=== PATIENT | female | born 1975 | race Caucasian/White ===

== ENCOUNTER 2017-04-18 12:12 | Outpatient (CLI) | payer MEDICAID ==
[~2017-04-18] VITALS: Ht 160 cm; Wt 70.1 kg
[2017-04-18] MEDS ORDERED: PRENAT PO (12:33)
[2017-04-18] MEDS ORDERED: FER325 PO (12:33)
[2017-04-18 12:34] VITALS: BP 127/73; PULSE 74; RESP 18; Ht 160 cm; Wt 70.1 kg
[2017-04-18] MEDS ORDERED: LACTATED RINGER'S 1,000 ML IV ONE ×2 (13:00→15:00)
--- NOTE | 2017-04-18 13:01 | RADRPT ---
PROCEDURE: OB ultrasound for biophysical profile CLINICAL INDICATION: Contractions TECHNIQUE: Multiple sonographic images of the pelvis were obtained. Transabdominal views of the g ravid uterus are available for review. The images were reviewed on a PACS workstation. COMPARISON: None FINDINGS: breathing movement = 2/2 tone = 2/2 motion = 2/2 MICHELE = 2/2 MICHELE = 23.1 cm Single live intrauterine with cardiac activity of 144 bpm. position is cephal ic. The placenta is posterior. IMPRESSION: 1. Single live intrauterine gestation. 2. Biophysical profile = 8. 3. MICHELE = 23.1 cm. RPTAT: HH .Amina Tam MD, MD Date Time Electronically viewed and signed by .Amina Tam MD, on 04/18/2017 13:01 .G/
[2017-04-18 13:27] LABS: ADD UMIC YES; UR ASCORBIC ACID NEGATIVE (NEGATIVE); UR BACTERIA MODERATE /HPF (NONE SEEN); UR BILIRUBIN (Dip) NEGATIVE (NEGATIVE); UR BLOOD (Dip) 1+ mg/dL (NEGATIVE); UR CLARITY CLEAR (CLEAR); UR COLOR STRAW (YELLOW); UR GLUCOSE (Dip) NEGATIVE (NEGATIVE); UR KETONES (Dip) NEGATIVE (NEGATIVE); UR LEUKOCYTE ESTERASE (Dip) NEGATIVE Leu/ul (NEGATIVE); UR NITRITE (Dip) NEGATIVE (NEGATIVE); UR RBC 1 /HPF (0-5); UR SPECIFIC GRAVITY (Dip) 1.002 (1.003-1.030); UR SQUAMOUS EPITHELIAL CELL FEW /HPF (FEW); UR TOTAL PROTEIN (Dip) NEGATIVE (NEGATIVE); UR UROBILINOGEN (Dip) NEGATIVE (NEGATIVE)
[2017-04-18] MEDS ORDERED: TERBUTALINE 1 MG/ML INJ SC ONE (15:00)
[2017-04-18] MEDS ORDERED: ACETAMINOPHEN 500 MG TAB PO STA (15:53)
--- NOTE | 2017-04-18 20:20 | PN ---
Triage Information Date/Time April 18, 2017 Reason for visit: Uterine contractions Weeks of Gestation 38 weeks and 3 days /Para Diabetes: none Hypertention: none Additional information 41-year-old with IUP at 38 weeks and 3 days with care with OB/ [facility] and history of 1 scheduled for repeat at 39 weeks. She presented with complaint of uterine cramps and contractions. Denies any leaking of fluid, vaginal bleeding or decreased movement. Patient symptoms improved and resolved with hydration. She also received a dose of Tylenol and her pain and contraction significantly improved. Was noted in the ultrasound to have MICHELE 23. BPP: 04/10 and NSC category 1 Objective Vital Signs Date Time Temp Pulse Resp B/P Pulse Ox O2 Delivery O2 Flow Rate FiO2 04/18/17 12:34 98.1 74 18 127/73 97 Room Air Heart Rate: 130's Contractions: 6-10 Minutes Apart Exam General appearance: Patient is alert and oriented 4 and appears to be in mild distress. Abdomen: Soft, gravid, nontender, no rebound tenderness, no guarding no rigidity Fundal height consistent with gestational age NST: Category 1 Irregular contractions between 5-10 minutes noted on the monitor that decreasing frequency and intensity after hydration. Patient rated her pain 3 out of 10 that resolved with p.o. Tylenol Results/Medications Results 24 hrs Laboratory Tests Test 04/18/17 11:00 Urine Color STRAW Urine Clarity CLEAR Urine pH 8.0 Urine Specific [place] 1.002 L Urine Ketones NEGATIVE Urine Nitrite NEGATIVE Urine Bilirubin NEGATIVE Urine Urobilinogen NEGATIVE Urine Leukocyte Esterase NEGATIVE Urine Microscopic RBC 1 Urine Microscopic WBC 3 Urine Squamous Epithelial Cells FEW Urine Bacteria MODERATE Urine Hemoglobin 1+ H Urine Glucose NEGATIVE Urine Total Protein NEGATIVE Imaging Results PROCEDURE: OB ultrasound for biophysical profile CLINICAL INDICATION: Contractions TECHNIQUE: Multiple sonographic images of the pelvis were obtained. Transabdominal views of the gravid uterus are available for review. The images were reviewed on a PACS workstation. COMPARISON: None FINDINGS: breathing movement = 2/2 tone = 2/2 motion = 2/2 MICHELE = 2/2 MICHELE = 23.1 cm Single live intrauterine with cardiac activity of 144 bpm. position is cephalic. The placenta is posterior. IMPRESSION: 1. Single live intrauterine gestation. 2. Biophysical profile = 04/10. 3. MICHELE = 23.1 cm. RPTAT: HH Disposition: Discharge Assessment/Plan IUP at 38 weeks and 3 days History of 1 irregular contractions resolved with p.o. hydration. Patient was comfortable. Plan to DC home Follow-up as a scheduled for repeat at 39 weeks Strict labor precaution and kick count discussed and follow-up within 24- 48 hours with her OB clinic recommended Patient verbalized understanding all above discussion. JAMES HURST MD Apr 18, 2017 20:19
--- NOTE | 2017-04-19 09:50 | TRIAGE ---
OB Triage Datetime Report Generated by CPN: 04/18/2017 16:29 Datetime: 04/18/2017 16:23 Stage of : OB Triage Maternal Assessment Level of Consciousness: Fully Conscious Labor Evaluation Frequency: NONE Monitor Mode: External Resting Tone Atlas: Relaxed Heart Rate FHR Baseline Rate: 140 Monitor Mode: External US Variability: Moderate 6-25 bpm Accelerations: 15X15 Decelerations: None Pain Assessment Pain Scale: 2 Pain Goal: 3 Vaginal Exam Membrane Status: Intact Vaginal Bleeding: None Datetime: 04/18/2017 15:30 Stage of : OB Triage Maternal Assessment Level of Consciousness: Fully Conscious Labor Evaluation Frequency: 4UC/HR Monitor Mode: External Duration (sec)2399: 50-130 Quality: Mild Resting Tone Atlas: Relaxed Heart Rate FHR Baseline Rate: 140 Monitor Mode: External US Variability: Moderate 6-25 bpm Accelerations: 15X15 Decelerations: None Pain Assessment Pain Scale: 0 Pain Goal: 3 Vaginal Exam Membrane Status: Intact Vaginal Bleeding: None Datetime: 04/18/2017 14:30 Stage of : OB Triage Maternal Assessment Level of Consciousness: Fully Conscious Labor Evaluation Frequency: 3UC/HR Monitor Mode: External Duration (sec)2399: 100-140 Quality: Mild Resting Tone Atlas: Relaxed Heart Rate FHR Baseline Rate: 130 Monitor Mode: External US Variability: Moderate 6-25 bpm Accelerations: 15X15 Decelerations: None Pain Assessment Pain Scale: 0 Pain Goal: 3 Vaginal Exam Membrane Status: Intact Vaginal Bleeding: None Datetime: 04/18/2017 13:30 Stage of : OB Triage Maternal Assessment Level of Consciousness: Fully Conscious Labor Evaluation Frequency: 5UC/HR Monitor Mode: External Duration (sec)2399: 60-180 Quality: Mild Resting Tone Atlas: Relaxed Heart Rate FHR Baseline Rate: 130 Monitor Mode: External US Variability: Moderate 6-25 bpm Accelerations: 15X15 Decelerations: None Category: Category I Pain Assessment Pain Scale: 0 Pain Goal: 3 Vaginal Exam Membrane Status: Intact Vaginal Bleeding: None Datetime: 04/18/2017 12:31 Assessment Type: Triage Maternal Assessment Level of Consciousness: Fully Conscious DTR's/Clonus: DTRs 2+; No Clonus Headache: Denies Blurred Vision: No Respiratory Effort: Unlabored; Regular Rhythm; Equal Expansion Breath Sounds, Left: Clear and Equal Breath Sounds, Right: Clear and Equal Nausea/Vomiting: Denies RUQ Epigastric Pain: Denies Lower Extremities Edema: None Degree: None Upper Extremities Edema: None Degree: None Facial Edema: None Fall Risk Assessment History of Falling: (0) No Secondary Diagnosis: (0) No Ambulatory Aid: (0) Bedrest/Nurse Assist IV Therapy: (0) No Gait: (0) Normal/Bedrest/Immobile Mental Status: (0) Oriented to Own Ability Fall Score: 0 Fall Risk Score Definition: No Risk: No action required Datetime: 04/18/2017 12:30 Time of Arrival: 04/18/2017 12:07 EGA: 38.3 Arrived By: Ambulatory Arrived From: Office Chief Complaint: PT SENT FROM CLINIC TO R/O LABOR Movement: Present Contractions: Denies/Absent Rupture of Membranes: Denies Vaginal Bleeding: None Vaginal Discharge: Denies Recent Sexual Intercouse: Denies Abdominal Trauma: Not Applicable Patient Complaints: None Time Provider Notified: 04/18/2017 12:41 Provider Notified: ABELARDO Initial Plan: BPP/IV HYDRATION/UA/EFM/TERB Datetime: 04/18/2017 12:21 Monitor Mode: External Monitor Mode: External US
== END 2017-04-18 16:40 | disposition home or self-care (01) ==
LOC: OBT 12:12 → L-D 12:13 → OBT 16:40
PROVIDERS: ATTEND Obstetrics & Gynecology
DX: O62.9 Abnormality of forces of labor, unspecified (principal); Z3A.38 38 weeks gestation of pregnancy
CPT/HCPCS: 36415; 76818; 81001; 96360; 96361; 96372; J3105; J7120; Z7500; Z7610; G0463

== ENCOUNTER 2017-04-23 10:04 | Inpatient (IN) | payer MEDICAID ==
[~2017-04-23] VITALS: Ht 160 cm; Wt 70.1 kg
[~2017-04-23 10:04] MED LIST: FER325 PO; PRENAT PO
[2017-04-23 10:23] VITALS: Ht 160 cm; Wt 70.1 kg
[2017-04-23] MEDS ORDERED: OXYTOCIN 30 UNITS/LR 500 ML IV SCH (10:30)
[2017-04-23] MEDS ORDERED: OXYTOCIN 30 UNITS/LR 500 ML IV PRN ×2 (10:30→18:00)
[2017-04-23] MEDS ORDERED: METHYLERGONOVINE 0.2 MG INJ IM PRN ×2 (10:30→18:00)
[2017-04-23] MEDS ORDERED: MISOPROSTOL 200 MCG TAB PR PRN ×2 (10:30→18:00)
[2017-04-23] MEDS ORDERED: CARBOPROST 250 MCG INJ IM PRN ×2 (10:30→18:00)
[2017-04-23] MEDS ORDERED: CEFAZOLIN 2 GM/50 ML (PMX) 50 ML IV SCH (10:30)
[2017-04-23 11:01] LABS: BASOPHILS % 0.4 % (0.0-2.0); EOSINOPHILS # 0.1 10^3/ul (0.0-0.5); EOSINOPHILS % 0.8 % (0.0-7.0); HEMATOCRIT 39.9 % (37.0-47.0); HEMOGLOBIN 13.5 g/dl (12.0-16.0); LYMPHOCYTES # 1.8 10^3/ul (0.8-2.9); MEAN CORPUSCULAR HEMOGLOBIN 31.2 pg (29.0-33.0); MEAN CORPUSCULAR HGB CONC 33.8 g/dl (32.0-37.0); MEAN CORPUSCULAR VOLUME 92.1 fl (82.0-101.0); MEAN PLATELET VOLUME 11.7 fl (7.4-10.4); MONOCYTE # 0.5 10^3/ul (0.3-0.9); MONOCYTES % 6.6 % (0.0-11.0); NEUTROPHILS % 68.7 % (39.0-77.0); PLATELET COUNT 347 10^3/UL (140-415); RED BLOOD COUNT 4.33 10^6/ul (4.20-5.40); RED CELL DISTRIBUTION WIDTH 14.2 % (11.5-14.5); WHITE BLOOD COUNT 7.8 10^3/ul (4.8-10.8)
[2017-04-23] MEDS: LACTATED RINGER'S 1,000 ML IV SCH (11:12)
[2017-04-23 11:24] LABS: INR 0.88; PARTIAL THROMBOPLASTIN TIME 29.6 Sec (25.0-35.0); PROTIME 11.9 Sec (12.2-14.2); PT RATIO 0.9
[2017-04-23] MEDS ORDERED: ONDANSETRON 4 MG INJ IV STA (12:18)
[2017-04-23] MEDS ORDERED: CITRIC ACID/NA CITRATE 30 ML CUP ONE (12:20)
[2017-04-23] MEDS ORDERED: CITRIC ACID/NA CITRATE 30 ML CUP PO ONE (12:20)
[2017-04-23] MEDS ORDERED: ONDANSETRON 4 MG INJ ONE (12:21)
[2017-04-23] MEDS ORDERED: morphine SULFATE/PF (10 MG/10 ML) INJ ONE (12:55)
[2017-04-23] MEDS ORDERED: METOCLOPRAMIDE 10 MG INJ ONE (12:55)
[2017-04-23] MEDS ORDERED: OXYTOCIN 10 UNIT INJ ONE (12:55)
[2017-04-23] MEDS ORDERED: FENTAnyl 50 MCG/ML VIAL ONE (12:55)
[2017-04-23] MEDS ORDERED: PHENYLephrine (100 MCG/ML) 5ML SYG ONE (12:55)
--- NOTE | 2017-04-23 13:10 | HP ---
Date/Time of Note Date/Time of Note DATE: 04/23/17 TIME: 12:56 OB - History Hx of Present Free Text/Dictation 41 years old female [id number] EDC April 29, 2007 admitted to the hospital at 39 weeks gestation with a history of previous section requested voluntary sterilization bilateral tubal ligation at the time of her section , this patient has been under the care of the [facility] and her was not complicated with gestational diabetes - induced hypertension or any other surgical or medical condition . [employer] history [place] at age 13 history of 3 pregnancies including present one previous cell one a spontaneous AB no other surgery or hospitalization noted in patient's record s allergies Denies allergy to any known medication Social habit Denies smoking drinking or using illicit drug Review of system within normal physical examination 5 feet 3 155 pound total weight gain during the 7 pound Temperature 98 pulse 82 respiration 18 blood pressure 114/77 Head ears nose and throat negative Neck supple no thyromegaly Lungs clear to P&A Heart normal sinus rhythm no murmur Abdomen fundal height 37 cm from symphysis pubis heart rate category 1 Pelvic examination deferred Extremities no edema no varicosities Impression intrauterine at 39 weeks gestation, history of previous section, requesting bilateral tubal ligation at the time of section, she has been counseled regarding the failure rate of tubal ligation increased risk of ectopic future failure to conceive ,also implication of the surgery including but not to bowel and bladder injury, wound infection wound hematoma and she is willing to go ahead with the procedure Chief Complaint: 39 weeks history of previous request for bilateral tuba Estimated Due Date: Apr 29, 2017 : 3 Para: 1 Spontaneous : 1 Ultrasounds: Normal mid trimester US Obstetrical Complications: None Medical Complications: None Past Family/Social History * Past Medical, Surgical, Family and Obstetric Histories reviewed from chart. Rubella: immune RPR/VDRL: Negative GBS Status: Negative HBsAG: Negative OB Admission Exam Physical Exam HEENT: WNL Heart: Rhythm Normal Lungs: Clear, Equal Abdomen: WNL Extremities: Normal Reflexes: Normal Cervical Dilatation: None Heart Rate: 130's Accelerations: Accelerations Present Decelerations: No Decelerations Varibility: Moderate Intensity: Mild Last 72 hours Lab Results CBC & BMP 04/23/17 10:30 OB Assessment/Plan Reason for admission: other (41 years old female 3 para 1 EDC April 29, 2017 history of previous admitted at 39 weeks gestation to undergo repeat patient has requested bilateral tubal ligation at the time of her section and she has been counseled regarding the failure rate of tubal ligation increased risk of ectopic future failure to conceive also the complication of the surgery including but not limited to bowel and bladder injury infection wound hematoma wound and for as well as complication may arise from the anesthesia she would like to proceed with the operation) IONA ZHOU MD Apr 23, 2017 13:06
[2017-04-23] MEDS ORDERED: DEXAMETHASONE 4 MG/ML 1 ML INJ ONE (13:25)
[2017-04-23] MEDS ORDERED: HYDROmorphONE (0.2 MG/ML) 10ML SYG IV PRN ×3 (14:00)
[2017-04-23] MEDS ORDERED: DIPHENHYDRAMINE 50 MG INJ IV PRN ×2 (14:00)
[2017-04-23] MEDS ORDERED: OXYCODONE/ACETAMINOPHEN (5/325) TAB PO PRN ×2 (14:00)
[2017-04-23] MEDS ORDERED: IPRATROPIUM (NEB) 0.5 MG/2.5 ML AMP HHN PRN (14:00)
[2017-04-23] MEDS ORDERED: ONDANSETRON 4 MG INJ IV PRN ×2 (14:00)
[2017-04-23] MEDS ORDERED: hydrALAzine 20 MG INJ IV PRN (14:00)
[2017-04-23] MEDS ORDERED: FENTAnyl 50 MCG/ML VIAL IV PRN ×3 (14:00)
[2017-04-23] MEDS ORDERED: EPHEDrine SULFATE 50 MG/5 ML SYG IV PRN (14:00)
[2017-04-23] MEDS ORDERED: morphine 4 MG/ML VIAL IV PRN (14:00)
[2017-04-23] MEDS ORDERED: NALOXONE (0.4 MG/ML) INJ IV PRN (14:00)
[2017-04-23] MEDS ORDERED: MEPERIDINE 25 MG INJ IV PRN (14:00)
[2017-04-23] MEDS ORDERED: TRIMETHOBENZAMIDE 100 MG/ML VIAL IM PRN ×2 (14:00)
[2017-04-23] MEDS ORDERED: LABETALOL HCL 20MG INJ IV PRN (14:00)
[2017-04-23] MEDS ORDERED: morphine 2 MG INJ IV PRN (14:00)
[2017-04-23] MEDS ORDERED: ALBUTEROL 0.083% (NEB) 2.5 MG/3 ML AMP HHN PRN (14:00)
--- NOTE | 2017-04-23 14:25 | OPR ---
Operative Report Planned Procedure Free Text/Dictation 41 years old female 39 weeks and 1 day SAB EDC April history of previous request for bilateral tubal ligation patient has been counseled regarding complication of the surgery including bowel bladder injury infection hemorrhage wound hematoma also the failure rate of tubal ligation increased risk of ectopic future failure to conceive. Procedure date Apr 23, 2017 Procedure(s) Repeat bilateral tubal ligation Performed by: IONA ZHOU MD Assisting provider: WAYNE LEWIS MD Anesthesiologist: Suman Atkins M.D. Pre-procedure diagnosis 39 weeks 1 day history of previous request for tubal ligation Anesthesia Type: spinal Procedure Description Under satisfactory [spine] anesthesia, the patient was prepped and draped and placed in a supine position, tilted to the left. Pfannenstiel incision was made , carried through the subcutaneous tissue. Bleeders brought under control with electrocautery. Fascia incised to the length of the incision. Rectus muscles from the fascia, divided midline. Peritoneum exposed, entered through a transverse incision. Exploration of abdomen revealed gravid uterus normal- appearing tubes and ovaries. Bladder flap was developed. Transverse incision was made in the lower segment of the uterus. Amniotic sac ruptured. Clear amniotic fluid noted live baby girl was delivered from unengaged vertex [] Nasal oropharyngeal suction was performed. The baby was handed to the team for immediate attention. placenta was delivered manually intact. Uterine cavity was cleaned with wet sponge and drainage established. Uterus closed in 2 layers using Monocryl #1 [] in continuous fashion bilateral tubal ligation performed by identifying the fimbria and ampullar segment of the right fallopian tube that segment of the tube was excised suture material used #0 plain catgut was reinforced with the same suture material cut end of the tube was cauterized and the specimen submitted to the pathology same procedure performed for the opposite side. Peritoneal cavity irrigated with warm saline. Sponge, needle and instrument count reported to be correct. Abdominal peritoneum closed with 2-0 chromic catgut continuously. Rectus muscle approximated with few interrupted 0 chromic catgut . Fascia closed with [#1 PDS , subcutaneous tissue approximated with several interrupted 0 chromic catgut skin closed with N sorb ,estimated blood loss 600 []mL. Urine bag contained 1 [] mL of clear urine patient tolerated procedure well transferred to recovery room in good condition Post-Procedure Findings: Live Baby girl 9 and 9 baby waited 8lb Specimen removed: No Complications: None Pt Condition post procedure: stable Physician Certification I, the undersigned physician, hereby certify that I have discussed the procedure described in this consent form with this patient (or the patient's legal sales representative supervisor), including: * The risk and benefits of the procedure; * Any adverse reactions that may reasonably be expected to occur; * Any alternative efficacious methods of treatment which may be medically viable ; * The potential problems that may occur during recuperation; * Potential for blood transfusion and associated risks/benefits; and * Any research or economic interest I may have regarding this treatment. I further certify that the patient/legally responsible person was encouraged to ask question and that all questions were answered. IONA ZHUO MD Apr 23, 2017 14:25
[2017-04-23] MEDS: KETOROLAC 30 MG INJ IV PRN (16:24)
[2017-04-23] MEDS ORDERED: LANOLIN 7 GM TUBE TOP PRN (18:00)
[2017-04-23] MEDS: OXYTOCIN 30 UNITS/LR 500 ML IV SCH ×2 (19:11→21:38)
[2017-04-23 20:00] VITALS: BP 119/72; RESP 18
[2017-04-23] MEDS ORDERED: CEFAZOLIN 1 GM/50 ML (PMX) 50 ML IVPB SCH (20:00)
[2017-04-24] VITALS: BP 113/64; RESP 17
[2017-04-24] MEDS: OXYTOCIN 30 UNITS/LR 500 ML IV SCH ×6 (01:38→21:38)
[2017-04-24 04:00] VITALS: BP 102/51; RESP 18
[2017-04-24] MEDS: KETOROLAC 30 MG INJ IV PRN ×2 (06:49→13:22)
[2017-04-24] MEDS: LACTATED RINGER'S 1,000 ML IV SCH ×4 (07:53→18:16)
[2017-04-24 08:00] VITALS: BP 105/51; PULSE 74; RESP 16
[2017-04-24 08:06] LABS: BASOPHILS % 0.2 % (0.0-2.0); EOSINOPHILS % 0.1 % (0.0-7.0); HEMATOCRIT 26.9 % (37.0-47.0); LYMPHOCYTES # 2.1 10^3/ul (0.8-2.9); LYMPHOCYTES % 16.3 % (15.0-51.0); MEAN CORPUSCULAR HEMOGLOBIN 30.5 pg (29.0-33.0); MEAN CORPUSCULAR HGB CONC 33.5 g/dl (32.0-37.0); MEAN CORPUSCULAR VOLUME 91.2 fl (82.0-101.0); MEAN PLATELET VOLUME 10.9 fl (7.4-10.4); MONOCYTE # 1.1 10^3/ul (0.3-0.9); MONOCYTES % 8.4 % (0.0-11.0); NEUTROPHILS % 74.7 % (39.0-77.0); PLATELET COUNT 250 10^3/UL (140-415); RED BLOOD COUNT 2.95 10^6/ul (4.20-5.40); RED CELL DISTRIBUTION WIDTH 13.9 % (11.5-14.5)
[2017-04-24] MEDS: SENNA/DOCUSATE NA (8.6MG/50MG) TAB PO SCH ×2 (09:12→22:11)
[2017-04-24 12:30] VITALS: BP 105/55; PULSE 74; RESP 14
[2017-04-24] MEDS ORDERED: HYDROCODONE/APAP (5/325) TAB PO PRN ×2 (13:01)
[2017-04-24] MEDS ORDERED: OXYCODONE/ACETAMINOPHEN (5/325) TAB PO PRN ×2 (13:01)
--- NOTE | 2017-04-24 14:12 | PN ---
Date/Time of Note Date/Time of Note DATE: 04/24/17 TIME: 14:11 OB Subjective Subjective Subjective Post day2 Afebrile Vital signs are stable Abdomen soft Bowel sounds present Extremities normal Ambulation recommended Laboratory Tests Test 04/24/17 07:52 White Blood Count 13.010^3/ul Red Blood Count 2.9510^6/ul Hemoglobin 9.0g/dl Hematocrit 26.9% Mean Corpuscular Volume 91.2fl Mean Corpuscular Hemoglobin 30.5pg Mean Corpuscular Hemoglobin Concent 33.5g/dl Red Cell Distribution Width 13.9% Platelet Count 38433^3/UL Mean Platelet Volume 10.9fl Neutrophils % 74.7% Lymphocytes % 16.3% Monocytes % 8.4% Eosinophils % 0.1% Basophils % 0.2% Nucleated Red Blood Cells % 0.0/100WBC Neutrophils # (Manual) 1010^3/ul Lymphocytes # 2.110^3/ul Monocytes # 1.110^3/ul Eosinophils # 0.010^3/ul Basophils # 0.010^3/ul Nucleated Red Blood Cells # 0.010^3/ul Current Medications Medications (Trade) Dose Ordered Sig/Serjio Route PRN Reason Start Time Stop Time Status Last Admin Dose Admin Lactated Ringer's 1,000 ml @ 125 mls/hr Q8H IV 04/23/17 10:16 04/24/17 07:53 Cefazolin Sodium/ Dextrose 50 ml @ 100 mls/hr ONCE IV 04/23/17 10:30 04/23/17 17:42 DC Oxytocin/Lactated Ringer's 500 ml @ 125 mls/hr ONCE IV 04/23/17 10:30 04/23/17 17:42 DC 04/23/17 15:33 Oxytocin/Lactated Ringer's 500 ml @ 0 mls/hr ONCE PRN IV For Hemorrhage Management 04/23/17 10:30 04/23/17 17:45 DC Methylergonovine Maleate (Methergine) 0.2 mg ONCE PRN IM VAGINAL BLEEDING 04/23/17 10:30 04/23/17 17:45 DC Carboprost Tromethamine (Hemabate) 250 mcg ONCE PRN IM VAGINAL BLEEDING 04/23/17 10:30 04/23/17 17:45 DC Misoprostol (Cytotec) 1,000 mcg ONCE PRN MO VAGINAL BLEEDING 04/23/17 10:30 04/23/17 17:42 DC Citric Acid/ Sodium Citrate (Bicitra) 30 ml ONCE ONCE PO 04/23/17 12:20 04/23/17 12:30 DC 04/23/17 12:35 Ondansetron HCl (Zofran Inj) 4 mg ONCE STAT IV 04/23/17 12:18 04/23/17 12:30 DC 04/23/17 12:35 Citric Acid/ Sodium Citrate (Bicitra) 30 ml STK-MED ONCE .ROUTE 04/23/17 12:20 04/23/17 12:21 DC Ondansetron HCl (Zofran Inj) 4 mg STK-MED ONCE .ROUTE 04/23/17 12:21 04/23/17 12:22 DC Fentanyl (Sublimaze) 100 mcg STK-MED ONCE .ROUTE 04/23/17 12:55 04/23/17 12:56 DC Morphine Sulfate (Duramorph) 10 mg STK-MED ONCE .ROUTE 04/23/17 12:55 04/23/17 12:56 DC Phenylephrine HCl ([place]-Synephrine Inj Syg) 500 mcg STK-MED ONCE .ROUTE 04/23/17 12:55 04/23/17 12:56 DC Metoclopramide HCl (Reglan) 10 mg STK-MED ONCE .ROUTE 04/23/17 12:55 04/23/17 12:56 DC Oxytocin (Oxytocin) 10 units STK-MED ONCE .ROUTE 04/23/17 12:55 04/23/17 12:56 DC Dexamethasone (Decadron) 4 mg STK-MED ONCE .ROUTE 04/23/17 13:25 04/23/17 13:26 DC Hydromorphone HCl (Dilaudid (Rec)) 0.2 mg PACU ORDER PRN IV MILD PAIN LEVEL 1-3 04/23/17 14:00 04/23/17 18:00 DC Hydromorphone HCl (Dilaudid (Rec)) 0.4 mg PACU ORDER PRN IV MODERATE PAIN LEVEL 4-6 04/23/17 14:00 04/23/17 18:00 DC Hydromorphone HCl (Dilaudid (Rec)) 0.6 mg PACU ORDER PRN IV SEVERE PAIN LEVEL 7-10 04/23/17 14:00 04/23/17 18:00 DC Fentanyl (Sublimaze) 25 mcg PACU ORDER PRN IV MILD PAIN LEVEL 1-3 04/23/17 14:00 04/23/17 17:42 DC Fentanyl (Sublimaze) 50 mcg PACU ODER PRN IV MODERATE PAIN LEVEL 4-6 04/23/17 14:00 04/23/17 17:43 DC Fentanyl (Sublimaze) 75 mcg PACU ORDER PRN IV SEVERE PAIN LEVEL 7-10 04/23/17 14:00 04/23/17 17:43 DC Oxycodone/ Acetaminophen (Percocet (5/ 325)) 1 tab PACU ORDER PRN PO PAIN LEVEL 1-5 04/23/17 14:00 04/23/17 18:00 DC Oxycodone/ Acetaminophen (Percocet (5/ 325)) 2 tab PACU ORDER PRN PO PAIN LEVEL 6-10 04/23/17 14:00 04/23/17 18:00 DC Ondansetron HCl (Zofran Inj) 4 mg PACU ORDER PRN IV NAUSEA AND/OR VOMITING 04/23/17 14:00 04/23/17 18:00 DC Trimethobenzamide HCl (Tigan) 200 mg PACU ORDER PRN IM NAUSEA AND/OR VOMITING 04/23/17 14:00 04/23/17 18:00 DC Labetalol HCl (Labetalol) 5 mg PACU ORDER PRN IV HIGH BLOOD PRESSURE 04/23/17 14:00 04/23/17 18:00 DC Hydralazine HCl (Apresoline) 5 mg PACU ORDER PRN IV HIGH BLOOD PRESSURE 04/23/17 14:00 04/23/17 17:43 DC Ephedrine Sulfate 5 mg PACU ORDER PRN IV MAP LESS THAN 60 04/23/17 14:00 04/23/17 17:43 DC Albuterol (Proventil 0.083% (Neb)) 2.5 mg PACU ORDER PRN HHN WHEEZING 04/23/17 14:00 04/23/17 17:43 DC Ipratropium [place] (Atrovent 0.02% (Neb)) 0.5 mg PACU ORDER PRN HHN WHEEZING 04/23/17 14:00 04/23/17 17:43 DC Meperidine HCl (Demerol) 25 mg PACU ORDER PRN IV POST-OP RIGORS 04/23/17 14:00 04/23/17 18:00 DC Diphenhydramine HCl (Benadryl) 25 mg PACU ORDER PRN IV PRURITUS 04/23/17 14:00 04/23/17 18:00 DC Naloxone HCl (Narcan) 0.1 mg Q2M PRN IV FOR RESP RATE 8 OR LESS 04/23/17 14:00 04/24/17 13:59 DC Ketorolac Tromethamine (Toradol) 30 mg Q6H PRN IV PAIN 04/23/17 14:00 04/24/17 13:59 DC 04/24/17 13:22 Morphine Sulfate (morphine) 2 mg Q3H PRN IV PAIN LEVEL 1-5 04/23/17 14:00 04/24/17 13:59 DC Morphine Sulfate (morphine) 4 mg Q3H PRN IV PAIN LEVEL 6-10 04/23/17 14:00 04/23/17 17:43 DC Diphenhydramine HCl (Benadryl) 25 mg Q6H PRN IV ITCHING 04/23/17 14:00 04/24/17 13:59 DC Ondansetron HCl (Zofran Inj) 4 mg Q6H PRN IV NAUSEA AND/OR VOMITING 04/23/17 14:00 04/23/17 18:00 DC Trimethobenzamide HCl (Tigan) 200 mg Q6H PRN IM NAUSEA AND/OR VOMITING 04/23/17 14:00 04/24/17 13:59 DC Miscellaneous Information (* Miscellaneous Pharmacy Order) Duramorph: 0.2 mg Spi... GIVEN XX 04/23/17 14:00 Acetaminophen/ Hydrocodone Bitart ([place] (5/325)) 1 tab Q4H PRN PO PAIN LEVEL 4-6 04/24/17 13:01 Acetaminophen/ Hydrocodone Bitart ([place] (5/325)) 2 tab Q4H PRN PO PAIN LEVEL 7-10 04/24/17 13:01 Oxycodone/ Acetaminophen (Percocet (5/ 325)) 1 tab Q4H PRN PO PAIN LEVEL 4-6 04/24/17 13:01 Oxycodone/ Acetaminophen (Percocet (5/ 325)) 2 tab Q4H PRN PO PAIN LEVEL 7-10 04/24/17 13:01 Ibuprofen (Motrin) 600 mg Q6 PO 04/24/17 18:00 Simethicone (Mylicon) 160 mg Q8H PRN PO DISTENSION/GAS/BLOATING 04/23/17 18:00 Senna/Docusate Sodium (Senokot-S) 1 tab BID PO 04/24/17 09:00 04/24/17 09:12 Lanolin (Bbg-H-Lsbtia) 1 applic BEDSIDE MEDICATION PRN TOP BEDSIDE FOR VERA TO NIPPLES 04/23/17 18:00 04/23/17 18:49 Diphtheria/ Tetanus/Acell Pertussis 0.5 ml 0.5 ml ONCE ONCE IM* 04/26/17 09:00 04/26/17 09:01 Oxytocin/Lactated Ringer's 500 ml @ 0 mls/hr ONCE PRN IV For Hemorrhage Management 04/23/17 18:00 Methylergonovine Maleate (Methergine) 0.2 mg ONCE PRN IM VAGINAL BLEEDING 04/23/17 18:00 Carboprost Tromethamine (Hemabate) 250 mcg ONCE PRN IM VAGINAL BLEEDING 04/23/17 18:00 Misoprostol 1000 mcg 1,000 mcg ONCE PRN MO VAGINAL BLEEDING 04/23/17 18:00 Cefazolin Sodium 50 ml @ 100 mls/hr ONCE IVPB 04/23/17 20:00 04/23/17 20:29 DC 04/23/17 19:51 Oxytocin/Lactated Ringer's 500 ml @ 125 mls/hr Q4H IV 04/23/17 17:38 04/23/17 19:11 IONA ZHOU MD Apr 24, 2017 14:12
[2017-04-24 16:50] VITALS: BP 111/73; PULSE 70; RESP 16
[2017-04-24] MEDS: IBUPROFEN 600 MG TAB PO SCH ×2 (18:32→23:39)
[2017-04-24 20:00] VITALS: BP 120/74; PULSE 80; RESP 20
[2017-04-25] MEDS: OXYTOCIN 30 UNITS/LR 500 ML IV SCH ×3 (01:35→09:38)
[2017-04-25] MEDS: LACTATED RINGER'S 1,000 ML IV SCH (02:16)
[2017-04-25 04:00] VITALS: BP 118/70; PULSE 79; RESP 20
[2017-04-25] MEDS: IBUPROFEN 600 MG TAB PO SCH ×4 (06:14→23:46)
[2017-04-25 08:00] VITALS: BP 123/79; PULSE 62; RESP 18
[2017-04-25] MEDS: SENNA/DOCUSATE NA (8.6MG/50MG) TAB PO SCH ×2 (08:58→20:41)
--- NOTE | 2017-04-25 09:39 | PN ---
Date/Time of Note Date/Time of Note DATE: 04/25/17 TIME: 09:38 OB Subjective Subjective Subjective Post day 2 Afebrile Vital signs are stable Abdomen soft incision dry bowel sounds present patient had bowel movement, extremities normal Plan of a.m. discharge discussed with the patient IONA ZHOU MD Apr 25, 2017 09:38
[2017-04-25 16:00] VITALS: BP 129/81; PULSE 66; RESP 18
[2017-04-25 20:00] VITALS: BP 127/75; PULSE 70; RESP 18
[2017-04-26 04:00] VITALS: BP 122/62; PULSE 58; RESP 18
[2017-04-26] MEDS: IBUPROFEN 600 MG TAB PO SCH ×2 (06:29→12:57)
[2017-04-26] MEDS: SENNA/DOCUSATE NA (8.6MG/50MG) TAB PO SCH (08:45)
[2017-04-26 08:49] VITALS: BP 141/79; PULSE 74; RESP 18
[2017-04-26] MEDS ORDERED: DIPHTH/TET/ACEL PERTUSS (ADULT) 0.5 ML VIAL IM* ONE (09:00)
--- NOTE | 2017-04-26 11:07 | DS ---
Date/Time of Note Date/Time of Note DATE: 04/26/17 TIME: 11:02 Obstetrical Discharge Record Final Diagnosis Final Diagnosis: Term delivered Section Section: Repeat Primary Indication plus bilateral tubal ligation Complications Augmentation: No Induction: No Gestational Age at Rupture previous C Section and request for sterilization Condition on Discharge Physical Assessment Last Vitals: Post C section day 3 Doing Well Afebrile Ambulatory Chest Clear Breasts are soft , Nipples are intact Abdomen is soft Fundus is firm Moderate amount of lochia Incision is clean ,No evidence of infection No calf tenderness No ankle edema New born is doing well, Breast feeding Voiding: Yes Bowel Movement: Yes Breast: Soft, non-tender Fundus: Firm Abdomen and Incision: Clean. and healing well Current Medications Medications (Trade) Dose Ordered Sig/Serjio Route PRN Reason Start Time Stop Time Status Last Admin Dose Admin Lactated Ringer's 1,000 ml @ 125 mls/hr Q8H IV 04/23/17 10:16 04/25/17 09:52 DC 04/24/17 07:53 Cefazolin Sodium/ Dextrose 50 ml @ 100 mls/hr ONCE IV 04/23/17 10:30 04/23/17 17:42 DC Oxytocin/Lactated Ringer's 500 ml @ 125 mls/hr ONCE IV 04/23/17 10:30 04/23/17 17:42 DC 04/23/17 15:33 Oxytocin/Lactated Ringer's 500 ml @ 0 mls/hr ONCE PRN IV For Hemorrhage Management 04/23/17 10:30 04/23/17 17:45 DC Methylergonovine Maleate (Methergine) 0.2 mg ONCE PRN IM VAGINAL BLEEDING 04/23/17 10:30 04/23/17 17:45 DC Carboprost Tromethamine (Hemabate) 250 mcg ONCE PRN IM VAGINAL BLEEDING 04/23/17 10:30 04/23/17 17:45 DC Misoprostol (Cytotec) 1,000 mcg ONCE PRN IL VAGINAL BLEEDING 04/23/17 10:30 04/23/17 17:42 DC Citric Acid/ Sodium Citrate (Bicitra) 30 ml ONCE ONCE PO 04/23/17 12:20 04/23/17 12:30 DC 04/23/17 12:35 Ondansetron HCl (Zofran Inj) 4 mg ONCE STAT IV 04/23/17 12:18 04/23/17 12:30 DC 04/23/17 12:35 Citric Acid/ Sodium Citrate (Bicitra) 30 ml STK-MED ONCE .ROUTE 04/23/17 12:20 04/23/17 12:21 DC Ondansetron HCl (Zofran Inj) 4 mg STK-MED ONCE .ROUTE 04/23/17 12:21 04/23/17 12:22 DC Fentanyl (Sublimaze) 100 mcg STK-MED ONCE .ROUTE 04/23/17 12:55 04/23/17 12:56 DC Morphine Sulfate (Duramorph) 10 mg STK-MED ONCE .ROUTE 04/23/17 12:55 04/23/17 12:56 DC Phenylephrine HCl ([facility]-Synephrine Inj Syg) 500 mcg STK-MED ONCE .ROUTE 04/23/17 12:55 04/23/17 12:56 DC Metoclopramide HCl (Reglan) 10 mg STK-MED ONCE .ROUTE 04/23/17 12:55 04/23/17 12:56 DC Oxytocin (Oxytocin) 10 units STK-MED ONCE .ROUTE 04/23/17 12:55 04/23/17 12:56 DC Dexamethasone (Decadron) 4 mg STK-MED ONCE .ROUTE 04/23/17 13:25 04/23/17 13:26 DC Hydromorphone HCl (Dilaudid (Rec)) 0.2 mg PACU ORDER PRN IV MILD PAIN LEVEL 1-3 04/23/17 14:00 04/23/17 18:00 DC Hydromorphone HCl (Dilaudid (Rec)) 0.4 mg PACU ORDER PRN IV MODERATE PAIN LEVEL 4-6 04/23/17 14:00 04/23/17 18:00 DC Hydromorphone HCl (Dilaudid (Rec)) 0.6 mg PACU ORDER PRN IV SEVERE PAIN LEVEL 7-10 04/23/17 14:00 04/23/17 18:00 DC Fentanyl (Sublimaze) 25 mcg PACU ORDER PRN IV MILD PAIN LEVEL 1-3 04/23/17 14:00 04/23/17 17:42 DC Fentanyl (Sublimaze) 50 mcg PACU ODER PRN IV MODERATE PAIN LEVEL 4-6 04/23/17 14:00 8/21/17 17:43 DC Fentanyl (Sublimaze) 75 mcg PACU ORDER PRN IV SEVERE PAIN LEVEL 7-10 04/23/17 14:00 04/23/17 17:43 DC Oxycodone/ Acetaminophen (Percocet (5/ 325)) 1 tab PACU ORDER PRN PO PAIN LEVEL 1-5 04/23/17 14:00 04/23/17 18:00 DC Oxycodone/ Acetaminophen (Percocet (5/ 325)) 2 tab PACU ORDER PRN PO PAIN LEVEL 6-10 04/23/17 14:00 04/23/17 18:00 DC Ondansetron HCl (Zofran Inj) 4 mg PACU ORDER PRN IV NAUSEA AND/OR VOMITING 04/23/17 14:00 04/23/17 18:00 DC Trimethobenzamide HCl (Tigan) 200 mg PACU ORDER PRN IM NAUSEA AND/OR VOMITING 04/23/17 14:00 04/23/17 18:00 DC Labetalol HCl (Labetalol) 5 mg PACU ORDER PRN IV HIGH BLOOD PRESSURE 04/23/17 14:00 04/23/17 18:00 DC Hydralazine HCl (Apresoline) 5 mg PACU ORDER PRN IV HIGH BLOOD PRESSURE 04/23/17 14:00 04/23/17 17:43 DC Ephedrine Sulfate 5 mg PACU ORDER PRN IV MAP LESS THAN 60 04/23/17 14:00 04/23/17 17:43 DC Albuterol (Proventil 0.083% (Neb)) 2.5 mg PACU ORDER PRN HHN WHEEZING 04/23/17 14:00 04/23/17 17:43 DC Ipratropium Oran (Atrovent 0.02% (Neb)) 0.5 mg PACU ORDER PRN HHN WHEEZING 04/23/17 14:00 04/23/17 17:43 DC Meperidine HCl (Demerol) 25 mg PACU ORDER PRN IV POST-OP RIGORS 04/23/17 14:00 04/23/17 18:00 DC Diphenhydramine HCl (Benadryl) 25 mg PACU ORDER PRN IV PRURITUS 04/23/17 14:00 04/23/17 18:00 DC Naloxone HCl (Narcan) 0.1 mg Q2M PRN IV FOR RESP RATE 8 OR LESS 04/23/17 14:00 04/24/17 13:59 DC Ketorolac Tromethamine (Toradol) 30 mg Q6H PRN IV PAIN 04/23/17 14:00 04/24/17 13:59 DC 04/24/17 13:22 Morphine Sulfate (morphine) 2 mg Q3H PRN IV PAIN LEVEL 1-5 04/23/17 14:00 04/24/17 13:59 DC Morphine Sulfate (morphine) 4 mg Q3H PRN IV PAIN LEVEL 6-10 04/23/17 14:00 04/23/17 17:43 DC Diphenhydramine HCl (Benadryl) 25 mg Q6H PRN IV ITCHING 04/23/17 14:00 04/24/17 13:59 DC Ondansetron HCl (Zofran Inj) 4 mg Q6H PRN IV NAUSEA AND/OR VOMITING 04/23/17 14:00 04/23/17 18:00 DC Trimethobenzamide HCl (Tigan) 200 mg Q6H PRN IM NAUSEA AND/OR VOMITING 04/23/17 14:00 04/24/17 13:59 DC Miscellaneous Information (* Miscellaneous Pharmacy Order) Duramorph: 0.2 mg Spi... GIVEN XX 04/23/17 14:00 Acetaminophen/ Hydrocodone Bitart (C[place]ield (5/325)) 1 tab Q4H PRN PO PAIN LEVEL 4-6 04/24/17 13:01 Acetaminophen/ Hydrocodone Bitart (Cofield (5/325)) 2 tab Q4H PRN PO PAIN LEVEL 7-10 04/24/17 13:01 Oxycodone/ Acetaminophen (Percocet (5/ 325)) 1 tab Q4H PRN PO PAIN LEVEL 4-6 04/24/17 13:01 Oxycodone/ Acetaminophen (Percocet (5/ 325)) 2 tab Q4H PRN PO PAIN LEVEL 7-10 04/24/17 13:01 Ibuprofen (Motrin) 600 mg Q6 PO 04/24/17 18:00 04/26/17 06:29 Simethicone (Mylicon) 160 mg Q8H PRN PO DISTENSION/GAS/BLOATING 04/23/17 18:00 04/26/17 06:28 Senna/Docusate Sodium (Senokot-S) 1 tab BID PO 04/24/17 09:00 04/26/17 08:45 Lanolin ([id number]) 1 applic BEDSIDE MEDICATION PRN TOP BEDSIDE FOR VERA TO NIPPLES 04/23/17 18:00 04/23/17 18:49 Diphtheria/ Tetanus/Acell Pertussis 0.5 ml 0.5 ml ONCE ONCE IM* 04/26/17 09:00 04/26/17 09:01 DC Oxytocin/Lactated Ringer's 500 ml @ 0 mls/hr ONCE PRN IV For Hemorrhage Management 04/23/17 18:00 Methylergonovine Maleate (Methergine) 0.2 mg ONCE PRN IM VAGINAL BLEEDING 04/23/17 18:00 Carboprost Tromethamine (Hemabate) 250 mcg ONCE PRN IM VAGINAL BLEEDING 04/23/17 18:00 Misoprostol 1000 mcg 1,000 mcg ONCE PRN IL VAGINAL BLEEDING 04/23/17 18:00 Cefazolin Sodium 50 ml @ 100 mls/hr ONCE IVPB 04/23/17 20:00 04/23/17 20:29 DC 04/23/17 19:51 Oxytocin/Lactated Ringer's 500 ml @ 125 mls/hr Q4H IV 04/23/17 17:38 04/25/17 14:22 DC 04/23/17 19:11 Calf Tenderness: No Patient Condition: Good SHAQUILLE MCMANUS MD Apr 26, 2017 11:07
== END 2017-04-26 16:40 | disposition home or self-care (01) | DRG 766 ==
LOC: L-D 10:04 → PP1 17:10
PROVIDERS: ADMIT Obstetrics & Gynecology; ATTEND Obstetrics & Gynecology
PROC: 0UB70ZZ Excision of Bilateral Fallopian Tubes, Open Approach (ICD-10-PCS; 2017-04-23)
PROC: 10D00Z1 Extraction of Products of Conception, Low, Open Approach (ICD-10-PCS; principal; 2017-04-23 12:30)
DX: O34.211 Maternal care for low transverse scar from previous cesarean delivery (principal); Z30.2 Encounter for sterilization; Z37.0 Single live birth; Z3A.39 39 weeks gestation of pregnancy
CPT/HCPCS: 85025; 85610; 85730; 86592; 86850; 86900; 86901; 87340; 88302; 90715; 94760; 99464; J0690; J1100; J1885; J2274; J2370; J2405; J2590; J2765; J3010; J7120